=== PATIENT | male | born 1960 | race Caucasian/White ===

== ENCOUNTER → 2016-08-06 | Outpatient (REF) | payer OTHER ==
[~2016-08-06] MED LIST: ALB2.5NEB INH; LASI20TA PO; MICR10CA PO; NAPR500T2 PO; PULM90IN IN; TYLE325T5 PO; ULTR50TA PO; XARE15TA PO
== END ==
LOC: M LAB REF 12:48
PROVIDERS: ATTEND Internal Medicine
DX: L03.115 Cellulitis of right lower limb (principal)

== ENCOUNTER 2016-10-18 16:49 | Emergency (ER) | payer OTHER ==
[~2016-10-18] VITALS: Ht 180.3 cm; Wt 106.6 kg
[2016-10-18] MEDS ORDERED: BUDE180INH (17:10)
[2016-10-18] MEDS ORDERED: TORS20TA2 PO (17:10)
[2016-10-18] MEDS ORDERED: METO25TA (17:10)
[2016-10-18] MEDS ORDERED: KLOR1CAP2 (17:10)
[2016-10-18] MEDS ORDERED: MELO15TA4 (17:10)
[2016-10-18] MEDS ORDERED: LIDO2.5C15 (17:10)
[2016-10-18] MEDS ORDERED: PROA1AER (17:10)
[2016-10-18] MEDS ORDERED: TYLE325T5 PO (20:36)
[2016-10-18] MEDS ORDERED: ACETAMINOPHEN TAB 650MG DOSE (2X325MG) PO ONE (20:45)
[2016-10-18 20:47] VITALS: BP 135/84
--- NOTE | 2016-10-19 09:36 | REP ---
RIGHT HAND SERIES, COMPLETE: 10/18/2016. Clinical history: Trauma. States prior fracture to the 5th digit. Pain 4th and 5th digits today. Comparison: 11/23/2013. Findings: The four views show soft tissue swelling over the dorsal aspect of the hand and a distal metaphyseal fracture of the 5th metatarsal which extends in a reversal Y shape for a single communication to the articular surface for a three-part fracture. No significant displacement but some dorsal apex angulation of the fracture on the lateral view. No other finding. Impression: 1. Minimally comminuted but not displaced fracture of the distal metaphysis into the articular aspect of the 5th metatarsal. There is some dorsal apex angulation, however. No other fracture or focal bone lesion. Signed by David Conde MD 10/19/2016 05:09 P
== END 2016-10-18 20:56 | disposition home or self-care (01) ==
LOC: M ED 18:05
DX: S62.608A Fracture of unspecified phalanx of other finger, initial encounter for closed fracture (principal); W23.1XXA Caught, crushed, jammed, or pinched between stationary objects, initial encounter; Y92.89 Other specified places as the place of occurrence of the external cause; Y93.89 Activity, other specified; Y99.0 Civilian activity done for income or pay

== ENCOUNTER → 2017-10-21 | Outpatient (REF) | payer OTHER ==
[2017-10-21 13:00] LABS: C REACTIVE PROTEIN QUANTITATIV < 0.30 MG/DL (0.00-0.30)
== END ==
LOC: M LAB REF 12:30
DX: L03.115 Cellulitis of right lower limb (principal)

== ENCOUNTER 2018-09-01 21:37 | Emergency (ER) | payer OTHER, BC ==
[~2018-09-01] VITALS: Ht 180.3 cm; Wt 102.0 kg
[~2018-09-01 21:37] MED LIST changes: +BUDE180INH; +KLOR1CAP2; +LIDO2.5C15; +MELO15TA28; +METO25TA; +PROAAER10; +TORS20TA2 PO
[2018-09-01] MEDS ORDERED: XARE20TA PO (21:44)
[2018-09-01 23:30] VITALS: BP 127/81
--- NOTE | 2018-09-02 11:58 | REP ---
Clinical: Trauma/injury. Technique: AP, lateral, bilateral oblique views of the left fifth digit. Findings: Generalized age-related changes are noted. No obvious acute fracture or dislocation. No subcutaneous emphysema or radiodense foreign body. Impression: No obvious acute fracture or dislocation. Electronically Signed by Feng Mata MD 09/02/2018 11:50 A
--- NOTE | 2018-09-02 12:00 | REP ---
Clinical: Trauma/injury . Technique: AP, lateral, bilateral oblique views of the left elbow. Findings: Age-related changes are appreciated. Lateral view best demonstrates diffuse swelling and suggestions for subtle elevation to the anterior fat pad. Subtle nondisplaced fracture at the very tip of the coronoid process cannot be excluded. No further acute fracture dislocation identified. Impression: Significant swelling and possible effusion. Subtle injury involving the proximal ulna/coronoid process cannot be excluded. Electronically Signed by Feng Mata MD 09/02/2018 11:52 A
--- NOTE | 2018-09-05 20:32 | ED PDOC ---
Post-Departure Follow-Up dr jacobo faxed formal report of left elbow film for fu Marcin Elise MD Sep 05, 2018 20:32
== END 2018-09-01 23:32 | disposition home or self-care (01) ==
LOC: M ED 21:37
DX: S50.02XA Contusion of left elbow, initial encounter (principal); S60.052A Contusion of left little finger without damage to nail, initial encounter; X58.XXXA Exposure to other specified factors, initial encounter; Y92.149 Unspecified place in prison as the place of occurrence of the external cause; Y93.9 Activity, unspecified; Y99.0 Civilian activity done for income or pay; J45.909 Unspecified asthma, uncomplicated; M54.5 Low back pain; Z86.711 Personal history of pulmonary embolism; Z79.899 Other long term (current) drug therapy; Z91.030 Bee allergy status; J30.2 Other seasonal allergic rhinitis; J30.81 Allergic rhinitis due to animal (cat) (dog) hair and dander; Z88.0 Allergy status to penicillin

== ENCOUNTER → 2018-10-31 | Outpatient (CLI) | payer BC, OTHER ==
[~2018-10-31] MED LIST changes: +KLOR10TA76 PO; +XARE20TA PO
[2018-10-31 09:52] LABS: HEMATOCRIT 41.3 % (42.0-52.0); HEMOGLOBIN 13.8 g/dl (13.5-17.5); MEAN CORPUSCULAR HEMOGLOBIN 29.1 pg (27.0-33.0); MEAN CORPUSCULAR HGB CONC 33.4 g/dl (32.0-36.5); MEAN CORPUSCULAR VOLUME 86.9 fl (80.0-96.0); PLATELET COUNT, AUTOMATED 351 10^3/uL (150-450); RED BLOOD COUNT 4.75 10^6/uL (4.30-6.10); WHITE BLOOD COUNT 7.7 10^3/uL (4.0-10.0)
--- NOTE | 2018-10-31 10:06 | REP ---
Chest x-ray: Two views. History: Left knee arthritis. Comparison study: October 06, 2013. Findings: The lungs are symmetrically aerated and clear. Pleural angles are sharp. Heart size is normal. Pulmonary vasculature is not increased. There are minimal degenerative changes in the thoracic spine. Impression: No active disease. Electronically Signed by Jose Mccord MD 10/31/2018 09:57 A
[2018-10-31 10:08] LABS: INR 1.11; PROTHROMBIN TIME 14.5 SECONDS (12.1-14.4)
[2018-10-31 10:20] LABS: ALBUMIN 4.2 GM/DL (3.2-5.2); ALT/SGPT 20 U/L (12-78); BILIRUBIN,TOTAL 0.7 MG/DL (0.2-1.0); BLOOD UREA NITROGEN 18 MG/DL (7-18); CALCIUM LEVEL 8.5 MG/DL (8.5-10.1); CARBON DIOXIDE LEVEL 34 MEQ/L (21-32); CHLORIDE LEVEL 103 MEQ/L (98-107); CREATININE FOR GFR 1.27 MG/DL (0.70-1.30); GLOMERULAR FILTRATION RATE > 60.0 (>56); GLUCOSE, FASTING 114 MG/DL (70-100); POTASSIUM SERUM 3.6 MEQ/L (3.5-5.1); SODIUM LEVEL 143 MEQ/L (136-145); TOTAL PROTEIN 7.4 GM/DL (6.4-8.2)
[2018-10-31 16:03] LABS: ERYTHROCYTE SEDIMENTATION RATE 9 mm/hr (0-20)
--- NOTE | 2018-11-01 00:34 | ECGEPIP ---
Stationary ECG Study [facility] Test Date: 2018-10-31 Pat Name: GIA BALTAZAR Department: Room: - Gender: M [employer]: : 1960 Requested By: Marisabel Barboza Order Number: [id number] Reading MD: Christopher Benítez Measurements Intervals Equality Rate: 50 P: 55 FL: 183 QRS: 20 QRSD: 93 T: 3 QT: 431 QTc: 396 Interpretive Statements SINUS BRADYCARDIA Electronically Signed On 11-01-2018 0:34:19 EDT by Christopher Benítez
== END ==
LOC: M LAB 08:44
PROVIDERS: ATTEND Orthopaedic Surgery
DX: M17.12 Unilateral primary osteoarthritis, left knee (principal)

== ENCOUNTER 2018-11-16 07:00 | Inpatient (IN) | payer OTHER, BC ==
--- NOTE | 2018-11-15 08:54 | HPE ---
DATE OF ADMISSION: 11/16/2018 ATTENDING PHYSICIAN: Dr. Jabari Hodges CHIEF COMPLAINT: Left knee pain and stiffness. HISTORY: This is a 58-year-old male patient with progressively worsening left knee pain and stiffness who has failed to improve with conservative management. He has elected for surgery for his continued symptoms. He has consented for a left total knee arthroplasty by Dr. Hodges ALLERGIES: - PENICILLIN - CAT DANDER - POLLEN - BEE STINGS CURRENT MEDICATIONS: - Xarelto 20 mg one by mouth daily - torsemide 20 mg 2 tablets twice a day - potassium - Pulmicort 0.25 mg 2 puffs once daily - Proventil 188 mcg 2 puffs as needed every 6 hours PAST MEDICAL HISTORY: History of multiple deep vein thromboses (DVTs), history of pulmonary embolism. PAST SURGICAL HISTORY: Right fibula 1999, diskectomy 1991, left heel spur 2006, hydrocele. FAMILY HISTORY: Noncontributory. SOCIAL HISTORY: The patient is a nonsmoker and does not report alcohol use. REVIEW OF SYSTEMS: The patient denies fever, chills, chest pain, shortness breath, nausea, vomiting, diarrhea, recent upper respiratory or urinary tract infection symptoms. He does report persistent pain in the left knee. PHYSICAL EXAMINATION: Height 5 feet 9-1/2 inches. Weight 237 pounds. Temperature 97.1, blood pressure 126/62, pulse 70, respirations 14. He is normocephalic, atraumatic, in no apparent distress. Alert and oriented with appropriate mood and affect. Neck is supple and nontender with no lymphadenopathy or jugular venous distention (JVD). S1 and S2 auscultated with no murmurs, rubs or gallops. Lungs clear to auscultation bilaterally with no wheezes, rales or rhonchi. Abdomen: Soft, nontender. The left knee overlying skin is intact, range of motion intact. The left lower extremity is well perfused. EKG: Noted for sinus bradycardia. CHEST X-RAY: With no active disease. LABORATORY DATA: White count 7.7, red blood count 4.75, hemoglobin 13.8, hematocrit 41.3, ESR 9, PT 14.5, INR 1.11, BUN 18, creatinine 1.27. PREOPERATIVE MEDICAL OPTIMIZATION: By Ree Freedman reviewed today. IMPRESSION: Left knee degenerative changes. PLAN: Consented for left total knee arthroplasty with Dr. Hodges.
[2018-11-16] VITALS (8 sets, daily range): BP systolic 113–147; BP diastolic 62–75; O2SAT 96
[~2018-11-16] VITALS: Ht 180.3 cm; Wt 104.3 kg
[~2018-11-16 07:00] MED LIST changes: +LIDOCAINE 1% MDV 20ML VIAL SQ PRN
[2018-11-16] MEDS ORDERED: ACETAMINOPHEN 500 MG TAB PO ONE (07:30)
[2018-11-16] MEDS ORDERED: LR 1,000 ML IV SCH ×3 (07:30→12:30)
[2018-11-16] MEDS ORDERED: LR 1,000 ML IV ONE (08:00)
[2018-11-16] MEDS ORDERED: VANCOMYCIN HCL 1,000 MG, VIAL MATE ADAPTER 1 EACH in D5W 250 ML IV ONE (08:00)
[2018-11-16] MEDS ORDERED: VANCOMYCIN 1000 MG/20 ML VIAL (J3370) As Ordered ONE (08:23)
[2018-11-16] MEDS ORDERED: LIDOCAINE 2% INJ 100 MG/5 ML SDV (FOR ANES.) As Ordered ONE (08:29)
[2018-11-16] MEDS ORDERED: MIDAZOLAM INJ 2 MG/2 ML VIAL (J2250) As Ordered ONE ×2 (08:30→08:40)
[2018-11-16] MEDS ORDERED: PROPOFOL 500 MG/50 ML VIAL As Ordered ONE (08:30)
[2018-11-16] MEDS ORDERED: fentaNYL 100 MCG/2 ML INJECTION (J3010) As Ordered ONE (08:40)
[2018-11-16] MEDS ORDERED: BUPIVACAINE/DEXTROSE 0.75% 2 ML AMP As Ordered ONE (08:42)
[2018-11-16] MEDS: fentaNYL 100 MCG/2 ML INJECTION (J3010) IV PRN ×2 (09:01→09:04)
[2018-11-16] MEDS: MIDAZOLAM INJ 2 MG/2 ML VIAL (J2250) IV PRN ×2 (09:01→09:04)
[2018-11-16] MEDS ORDERED: BUPIVACAINE HCL 0.25% 30 ML VIAL As Ordered ONE (09:40)
[2018-11-16] MEDS ORDERED: TRANEXAMIC ACID 100 MG/ML 10ML VIAL As Ordered ONE (09:40)
[2018-11-16] MEDS ORDERED: CLINDAMYCIN INJ 900MG/6ML VIAL As Ordered ONE (09:41)
[2018-11-16] MEDS ORDERED: BUPIVACAINE LIPOSOME/PF 1.3% 20ML VIAL (13.3MG/ML)(EXPAREL)(C9290 PER1MG) As Ordered ONE (09:41)
[2018-11-16] MEDS ORDERED: EPINEPHrine INJ 1 MG/ML 1ML AMP As Ordered ONE (09:41)
[2018-11-16] MEDS ORDERED: ROPIvacaine 0.5% 30 ML INJECTION (J2795 PER 1MG) ONE (09:57)
[2018-11-16] MEDS ORDERED: dexameTHASONE 10 MG/1 ML VIAL PRES.FREE (J1100) ONE (09:57)
[2018-11-16] MEDS ORDERED: LIDOCAINE 1% MDV 20ML VIAL ONE (09:57)
[2018-11-16] MEDS ORDERED: dexameTHASONE 4 MG/ML 1ML VIAL (J1100) As Ordered ONE (10:40)
[2018-11-16] MEDS ORDERED: PERCOCET 5MG/325MG TAB PO PRN (12:15)
[2018-11-16] MEDS ORDERED: ONDANSETRON 4MG/2ML VIAL (J2405) IV PRN (12:15)
[2018-11-16] MEDS ORDERED: fentaNYL 100 MCG/2 ML INJECTION (J3010) IV PRN (12:15)
[2018-11-16] MEDS ORDERED: FLEET ENEMA PR PRN (12:30)
[2018-11-16] MEDS ORDERED: HYDROMORPHONE HCL 0.5 MG/ 0.5 ML SYRINGE (J1170 PER 1) IV PRN (12:30)
--- NOTE | 2018-11-16 13:44 | REP ---
REASON: Postoperative evaluation. Patient is status post TKR. Portable AP and lateral views were obtained status post TKR. The femoral and acetabular components are well seated and well approximated. The alignment is near anatomical. There is expected postoperative soft tissue swelling. There is an anterior skin staple line in place. Electronically Signed by Israel Baker DO 11/16/2018 03:26 P
--- NOTE | 2018-11-16 16:12 | RO ---
DATE OF PROCEDURE: 11/16/2018 PREOPERATIVE DIAGNOSIS: Left knee osteoarthritis. POSTOPERATIVE DIAGNOSIS: Left knee osteoarthritis. PROCEDURE: Left total knee arthroplasty using a size 7 femoral component with a size 7 tibial tray and a 6 mm rotating platform polyethylene insert, and a 38 mm polyethylene patellar button. Prosthesis made by [employer]. It was an Attune knee. SURGEON: Marisabel Bentley MD GLAZIER [employer] FURNITURE: MEGHAN Cool ANESTHESIA: Spinal with left femoral nerve block. COMPLICATIONS: None. ESTIMATED BLOOD LOSS: 20 mL. SPECIMEN: Joint surface. DESCRIPTION OF PROCEDURE: Antibiotics were given intravenously preoperatively, then a successful left femoral nerve block and then spinal anesthetic was established. Then, a tourniquet placed on left upper thigh and not inflated. The left lower extremity was carefully prepped and draped in the usual sterile fashion, elevated and then appropriate time-out. Tourniquet was inflated. A longitudinal incision was made for direct medial parapatellar approach to the knee. Bovie cautery used to coagulate the crossing vessels. Medial parapatellar arthrotomy was performed. Subperiosteal dissection around the proximal, medial and lateral tibia plateau was performed. The patella was everted. The knee flexed. Anterior cruciate ligament (ACL) was debrided. A drill placed down the center of the femoral canal, followed by the intramedullary joanna and the distal femoral cutting jig set at a 9 mm resection level at 5 degree valgus for a left knee. Pinned into position. Distal femoral cut performed. The AP sizing jig was then utilized to establish that a size 7 was the appropriate size. 3 degrees external rotation were dialed in. The block was pinned. Pin holes were made and then the 4-in-1 block applied. Then, the anterior, posterior and chamfer cuts performed. We then exposed placed the 10 plate for the femoral notch onto the femur and then performed the notchplasty with a saw. We then exposed the proximal tibia, used the extramedullary alignment jig to estimate being parallel to the mechanical axis referencing off the medial tibial condyle at 4 mm resection level. The block was pinned into position distal femoral, and then secondary check with an extramedullary joanna confirmed that we appeared to be parallel to the mechanical axis. Proximal tibial osteotomy thus performed. We then placed the lamina haunted history tour guide laterally and performed a completion medial meniscectomy and debridement of the posterior medial osteophytes. We then placed the lamina haunted history tour guide medially and performed a completion lateral meniscectomy and debridement of the posterior lateral osteophytes. Spacer block was placed. It was bit snugged medially. Thus, I did go back and do a bit more of medial and posteromedial release, and then the 5 mm spacer block fit well. It was fairly snug both in extension and in flexion, but at first I thought it was reasonably acceptable. Thus, I exposed the proximal tibia and sized for a #7 tray. The osteophytes medially were removed. We then applied the reamer and broach and the trial was placed, followed by the trial femoral component. We brought the knee through a range of motion. Brought the knee out into the extension. Everted the patella. Performed a patellar osteotomy. Sized for a 38 button. The lug hole was drilled and the trial was placed and patellofemoral tracking was anatomic. However, I did feel that there was a bit of excess tightness both in flexion and in extension with the 5 mm insert. Thus, I elected at this point to take a bit more off the proximal tibia. I removed the trial components. Used the batwing to reapply the tibial jig and then moved it down 2 mm and performed a proximal tibial osteotomy again. I then re-applied the tibial tray with the broach and then the femoral component. The 6 mm insert fit very nicely and this time we had excellent stability to varus/valgus stress testing. He come out in full extension and there is no excessive tightness. At this point, I thought he had good stability both in flexion and in extension. Thus, lug holes for the femur were drilled. Trial components removed. I copiously pulsatile lavage irrigated out the knee joint and placed Exparel in the subperiosteal tissues around the distal femur of the proximal tibia as Ms. Fiona Saenz at this point then mixed the cement on the back table. She was also critical to the success of this difficult surgery by helping with appropriate soft manipulation, helped to flex and extend the knee as needed, helped with closing the wound, preparing the patient, amongst many other tasks to allow me to perform the operation smoothly, efficiently and safely. Once all the bony surfaces were thoroughly dried, we then cemented the tibial tray, removed excess cement and placed the polyethylene, then cemented the femoral component and removed excess cement. Brought the knee out in extension and then cemented the patellar button, held it with a clamp and excess cement was removed. Then, we held the knee in extension as we waited for the cement to harden, and then, as we waiting this we copiously pulsatile lavage irrigated out the knee joint once again, then instilled Exparel and then began closing the apex through the arthrotomy with two #1 PDS sutures, then one medial parapatellar stitch and then we used a running double armed #1 Stratafix to close the capsule. Then, the tourniquet was released. We then irrigated between layers. Closed the deep subdermal tissues with interrupted #2-0 PDS suture. The skin was closed with linda and an Optifoam and dry sterile bulky dressing. He was then transferred to the recovery room in stable condition. There were no intraoperative complications.
[2018-11-16] MEDS: HYDROMORPHONE HCL 0.5 MG/ 0.5 ML SYRINGE (J1170 PER 1) IV PRN (19:53)
[2018-11-16] MEDS: ACETAMINOPHEN TAB 650MG DOSE (2X325MG) PO PRN (21:53)
[2018-11-16] MEDS: VANCOMYCIN HCL 1,000 MG, VIAL MATE ADAPTER 1 EACH in D5W 250 ML IV SCH (23:32)
[2018-11-17] MEDS: HYDROMORPHONE HCL 0.5 MG/ 0.5 ML SYRINGE (J1170 PER 1) IV PRN (00:54)
[2018-11-17 02:00] VITALS: BP 148/70
[2018-11-17] MEDS: ACETAMINOPHEN TAB 650MG DOSE (2X325MG) PO PRN (02:46)
[2018-11-17 06:00] VITALS: BP 133/68
[2018-11-17] MEDS ORDERED: PERCOCET 5MG/325MG TAB PO PRN (06:00)
[2018-11-17] MEDS ORDERED: ONDANSETRON 4 MG TAB (S0181) PO PRN (06:00)
[2018-11-17] MEDS: PERCOCET 5MG/325MG TAB PO PRN ×3 (06:14→14:45)
[2018-11-17 06:33] LABS: HEMATOCRIT 36.5 % (42.0-52.0); MEAN CORPUSCULAR HEMOGLOBIN 29.1 pg (27.0-33.0); MEAN CORPUSCULAR HGB CONC 32.9 g/dl (32.0-36.5); MEAN CORPUSCULAR VOLUME 88.6 fl (80.0-96.0); PLATELET COUNT, AUTOMATED 267 10^3/uL (150-450); RED BLOOD COUNT 4.12 10^6/uL (4.30-6.10); WHITE BLOOD COUNT 19.5 10^3/uL (4.0-10.0)
[2018-11-17 06:52] LABS: BLOOD UREA NITROGEN 15 MG/DL (7-18); CALCIUM LEVEL 8.6 MG/DL (8.5-10.1); CARBON DIOXIDE LEVEL 29 MEQ/L (21-32); CHLORIDE LEVEL 105 MEQ/L (98-107); CREATININE FOR GFR 1.08 MG/DL (0.70-1.30); GLOMERULAR FILTRATION RATE > 60.0 (>56); GLUCOSE, FASTING 137 MG/DL (70-100); POTASSIUM SERUM 3.7 MEQ/L (3.5-5.1); SODIUM LEVEL 140 MEQ/L (136-145)
[2018-11-17] MEDS ORDERED: PERC5TAB12 PO (07:59)
[2018-11-17 08:00] VITALS: BP 118/64
[2018-11-17] MEDS ORDERED: MIRALAX *UNIT DOSE* 17GM PACKET PO SCH (09:00)
[2018-11-17] MEDS ORDERED: MOM 30ML SUSPENSION UDC PO SCH (09:00)
[2018-11-17] MEDS: VANCOMYCIN HCL 1,000 MG, VIAL MATE ADAPTER 1 EACH in D5W 250 ML IV SCH (11:08)
[2018-11-17] MEDS ORDERED: RIVAROXABAN 10 MG TAB (XARELTO) PO SCH (18:00)
== END 2018-11-17 15:00 | disposition home or self-care (01) | DRG 302 ==
LOC: M OR 07:00 → M MS5PR 14:40
PROVIDERS: ADMIT Orthopaedic Surgery; ATTEND Orthopaedic Surgery
PROC: 0SRD0J9 Replacement of Left Knee Joint with Synthetic Substitute, Cemented, Open Approach (ICD-10-PCS; principal; 2018-11-16 10:00)
DX: M17.12 Unilateral primary osteoarthritis, left knee (principal); J30.1 Allergic rhinitis due to pollen; J30.81 Allergic rhinitis due to animal (cat) (dog) hair and dander; Z86.711 Personal history of pulmonary embolism; Z86.718 Personal history of other venous thrombosis and embolism; Z88.0 Allergy status to penicillin; Z91.030 Bee allergy status; Z79.01 Long term (current) use of anticoagulants; Z79.899 Other long term (current) drug therapy; Z87.891 Personal history of nicotine dependence

== ENCOUNTER 2018-12-03 19:31 | Emergency (ER) | payer OTHER, BC ==
[~2018-12-03] VITALS: Ht 180.3 cm; Wt 106.8 kg
[~2018-12-03 19:31] MED LIST changes: -LIDOCAINE 1% MDV 20ML VIAL SQ PRN; +PERC5TAB12 PO
[2018-12-03 20:53] LABS: BASO # 0.1 10^3/uL (0.0-0.2); BASO % 0.8 % (0.0-1.0); EOS # 0.2 10^3/uL (0.0-0.50); EOS % 2.7 % (0.0-3.0); HEMATOCRIT 36.7 % (42.0-52.0); HEMOGLOBIN 12.2 g/dl (13.5-17.5); LYMPH # 1.7 10^3/uL (1.5-4.5); LYMPH % 22.1 % (24.0-44.0); MEAN CORPUSCULAR HEMOGLOBIN 29.3 pg (27.0-33.0); MEAN CORPUSCULAR HGB CONC 33.2 g/dl (32.0-36.5); MONO # 0.6 10^3/uL (0.0-0.8); MONO % 7.8 % (0.0-5.0); NEUTROPHILS # 5.2 10^3/uL (1.8-7.7); PLATELET COUNT, AUTOMATED 390 10^3/uL (150-450); RED BLOOD COUNT 4.17 10^6/uL (4.30-6.10); WHITE BLOOD COUNT 7.8 10^3/uL (4.0-10.0)
[2018-12-03 21:16] LABS: ERYTHROCYTE SEDIMENTATION RATE 25 mm/hr (0-20)
[2018-12-03 21:17] LABS: BLOOD UREA NITROGEN 22 MG/DL (7-18); C REACTIVE PROTEIN QUANTITATIV 0.42 MG/DL (0.00-0.30); CALCIUM LEVEL 8.9 MG/DL (8.5-10.1); CARBON DIOXIDE LEVEL 33 MEQ/L (21-32); CHLORIDE LEVEL 103 MEQ/L (98-107); CREATININE FOR GFR 1.19 MG/DL (0.70-1.30); GLOMERULAR FILTRATION RATE > 60.0 (>56); GLUCOSE, FASTING 100 MG/DL (70-100); POTASSIUM SERUM 3.7 MEQ/L (3.5-5.1); SODIUM LEVEL 143 MEQ/L (136-145)
[2018-12-03 22:28] VITALS: BP 157/92
--- NOTE | 2018-12-04 08:30 | REP ---
Clinical: Postoperative swelling. Technique: AP, lateral, bilateral oblique views of the left knee. Findings: The patient is status post knee replacement with satisfactory appearance and position to the tibial and femoral components. Diffuse soft tissue swelling and effusion noted. Impression: Diffuse soft tissue swelling and effusion. Electronically Signed by Feng Mata MD 12/04/2018 08:21 A
== END 2018-12-03 22:31 | disposition home or self-care (01) ==
LOC: M ED 19:31
DX: M25.462 Effusion, left knee (principal); Z98.890 Other specified postprocedural states; Z96.662 Presence of left artificial ankle joint; Z86.718 Personal history of other venous thrombosis and embolism; Z86.711 Personal history of pulmonary embolism; J45.909 Unspecified asthma, uncomplicated; R60.9 Edema, unspecified; Z88.0 Allergy status to penicillin; Z91.030 Bee allergy status; Z79.899 Other long term (current) drug therapy; Z79.01 Long term (current) use of anticoagulants; Z79.51 Long term (current) use of inhaled steroids

== ENCOUNTER → 2019-06-01 | Outpatient (CLI) | payer BC, OTHER ==
--- NOTE | 2019-06-01 10:55 | REP ---
RENAL ULTRASOUND: Real-time sonographic evaluation of the kidneys performed and demonstrates both kidneys to be normal in size and echotexture, right kidney measuring 12.3 x 5.8 x 6.0 cm and left kidney 1.4 x 5.0 x 5.9 cm. There is no hydronephrosis, renal mass or nephrolithiasis. There are ureteral jets in the urinary bladder with Doppler color evaluation bilaterally. IMPRESSION: Negative renal ultrasound. Electronically Signed by Christiano Arana MD 06/01/2019 11:46 A
--- NOTE | 2019-06-01 11:01 | REP ---
RIGHT LOWER EXTREMITY DUPLEX DOPPLER ARTERIAL ULTRASOUND: Real-time ultrasound evaluation and duplex Doppler interrogation of right lower extremity arterial system is performed. BIANKA is 1.1. Minimal scattered plaque is seen diffusely. There is no compelling duplex Doppler sonographic evidence of hemodynamically significant stenosis of the right lower extremity arterial system. There are normal flow velocities and triphasic waveforms diffusely. PEAK SYSTOLIC VELOCITY RIGHT Common femoral artery 92.0 cm/s Profunda 61.7 SFA 96.0 Popliteal 88.9 Proximal anterior tibial artery 61.6 Tibial peroneal trunk 78.9 Proximal posterior tibial artery 47.0 Distal posterior tibial artery 116.0 Distal anterior tibial artery 92.8 IMPRESSION: Minimal scattered plaquing right lower extremity arterial system without evidence of hemodynamically significant stenosis. Electronically Signed by Christiano Arana MD 06/01/2019 11:47 A
== END ==
LOC: M RAD 09:07
PROVIDERS: ATTEND Internal Medicine
DX: R22.41 Localized swelling, mass and lump, right lower limb (principal)

== ENCOUNTER → 2019-06-06 | Outpatient (REF) | payer OTHER | LOC: M LAB REF 11:28 | PROVIDERS: ATTEND Internal Medicine | DX: Z86.711 Personal history of pulmonary embolism (principal); R22.41 Localized swelling, mass and lump, right lower limb ==

== ENCOUNTER → 2019-10-26 | Outpatient (CLI) | payer BC, OTHER ==
--- NOTE | 2019-10-27 05:06 | REP ---
Clinical: History of prior deep venous thrombosis. Technique: Real time carr scale and color Doppler evaluation of the bilateral lower extremities using linear high frequency transducer. Reflux evaluation performed. Findings: Ultrasound examination of the bilateral lower extremities demonstrates no evidence for deep venous thrombosis. Bilateral Maher's cysts measure 3.3 x 0.8 x 2.0 cm in the right popliteal fossa and 4.1 x 1.4 x 3.0 cm in the left popliteal fossa. Right lower extremity demonstrates minimal reflux in the common femoral vein on standing and mid superficial femoral vein primarily in the Trendelenburg position with bed tipped. Left lower extremity demonstrates minimal reflux in the common femoral vein on standing and superficial femoral vein/popliteal vein in the Trendelenburg position with bed tipped. Impression: 1. No evidence for deep venous thrombosis. 2. Minimal reflux through the bilateral deep venous system primarily in the Trendelenburg position. 3. Bilateral Maher's cysts. Electronically Signed by Feng Mata MD 10/27/2019 04:58 A
== END ==
LOC: M RAD 08:46
PROVIDERS: ATTEND Physician Assistant
DX: Z86.718 Personal history of other venous thrombosis and embolism (principal)

== ENCOUNTER 2020-09-19 00:04 | Emergency (ER) | payer BC, OTHER ==
[~2020-09-19] VITALS: Ht 180.3 cm; Wt 113.6 kg
[2020-09-19] MEDS ORDERED: BREO1INH3 PO (00:14)
[2020-09-19] MEDS ORDERED: SPIR-10 PO (00:14)
--- NOTE | 2020-09-19 01:12 | REPVR ---
PROCEDURE INFORMATION: Exam: XR Right Knee Exam date and time: 09/19/2020 12:22 AM Age: 60 years old Clinical indication: Other: Trauma TECHNIQUE: Imaging protocol: XR Right knee. Views: 4 or more views. [place] view of the patella was included. COMPARISON: CR Knee, Ap, Lat 11/16/2018 12:17 PM FINDINGS: Bones/joints: No fracture. No dislocation. Joint spaces are preserved. Two well corticated osseous density in the intercondylar notch measuring up to 8 mm. Soft tissues: Normal. IMPRESSION: 1. No acute fracture. 2. Two well corticated osseous density in the intercondylar notch. Loose body or calcific tendinitis. Electronically signed by: Rafal Brown On 09/19/2020 01:13:22 AM
[2020-09-19] MEDS ORDERED: NORCO, ANEXSIA 5/325MG TABLET (HYDROcodone/ACETAMINOPHEN) PO ONE (01:15)
[2020-09-19 01:59] VITALS: BP 129/71
--- NOTE | 2020-09-20 08:05 | ED PDOC ---
Post-Departure Follow-Up right knee xray faxed formal report to luis jacobo and kelly for fu Marcin Elise MD Sep 20, 2020 08:05
== END 2020-09-19 02:01 | disposition home or self-care (01) ==
LOC: M ED 00:04
DX: M23.91 Unspecified internal derangement of right knee (principal); I10 Essential (primary) hypertension; J45.909 Unspecified asthma, uncomplicated; Z86.711 Personal history of pulmonary embolism; Z86.718 Personal history of other venous thrombosis and embolism; Z88.0 Allergy status to penicillin; Z79.01 Long term (current) use of anticoagulants

== ENCOUNTER → 2020-10-09 | Outpatient (CLI) | payer OTHER, BC ==
[~2020-10-09] MED LIST changes: +BREO1INH3 PO; +SPIR-10 PO
--- NOTE | 2020-10-09 15:13 | REP ---
INDICATION: UNSP INTERNAL DERANGEMENT OF RT KNEE. COMPARISON: Radiographs 09/19/2020. TECHNIQUE: Multiple sequences obtained in the axial, coronal and sagittal planes. FINDINGS: Menisci: There is a complex tear of the posterior horn of the medial meniscus. Cruciate ligaments: There is mild increased signal on T2 weighted images in the anterior cruciate ligament suggesting a sprain or partial tear. Collateral ligaments: Mild edema surrounds the medial collateral ligament suggesting a grade 1 sprain. Extensor mechanism/patellar retinacula: Intact. Cartilage: There is moderately severe chondromalacia of the medial femoral condyle at the weight-bearing surface. There is moderate chondromalacia of the medial tibial plateau. Bone marrow: There is moderate marrow edema in the medial femoral condyle. Joint fluid: There is a moderate joint effusion. Popliteal region: A Maher's cyst is noted having a length of approximately 4 cm, and a maximum thickness of about 1.2 cm. IMPRESSION: Complex tear posterior horn medial meniscus. Findings suggesting a sprain or partial tear of the anterior cruciate ligament. Findings compatible with grade 1 sprain of the medial collateral ligament. Moderately severe chondromalacia of the weight-bearing surface of the medial femoral condyle with underlying marrow edema. Moderate joint effusion. Maher's cyst. <Electronically signed by Christiano Arana > 10/09/20 [id number]
== END ==
LOC: M PLARAD 10:19
PROVIDERS: ATTEND Family Medicine
DX: M23.221 Derangement of posterior horn of medial meniscus due to old tear or injury, right knee (principal); M94.261 Chondromalacia, right knee; M25.461 Effusion, right knee; M71.21 Synovial cyst of popliteal space [Baker], right knee

== ENCOUNTER → 2020-11-14 | Outpatient (CLI) | payer OTHER, BC ==
[~2020-11-14] MED LIST changes: +VALS40TA9 PO
== END ==
LOC: M LABSMTC 10:14
PROVIDERS: ATTEND Anesthesiology
DX: Z20.828 Contact with and (suspected) exposure to other viral communicable diseases (principal); Z11.59 Encounter for screening for other viral diseases

== ENCOUNTER 2020-11-19 08:06 | Day surgery (SDC) | payer OTHER ==
[~2020-11-19] VITALS: Ht 180.3 cm; Wt 117.5 kg
[~2020-11-19 08:06] MED LIST changes: +LIDO1CRE42; -LIDO2.5C15; +LR 1,000 ML IV ONE
[2020-11-19] MEDS ORDERED: GABAPENTIN 300 MG CAP PO ONE (08:45)
[2020-11-19] MEDS ORDERED: ACETAMINOPHEN 500 MG TAB PO ONE (08:45)
[2020-11-19] MEDS ORDERED: ONDANSETRON 4MG/2ML VIAL IV ONE (08:45)
[2020-11-19] MEDS ORDERED: BUPIVACAINE/EPIN 0.5% 30 ML VIAL As Ordered ONE (11:31)
[2020-11-19] MEDS ORDERED: EPINEPHrine 1MG/ML INJ 30ML MD-VIAL As Ordered ONE (11:31)
[2020-11-19] MEDS ORDERED: LIDOCAINE 2% 100MG/5ML SDV (FOR ANES.) As Ordered ONE (12:02)
[2020-11-19] MEDS ORDERED: ONDANSETRON 4MG/2ML VIAL As Ordered ONE (12:02)
[2020-11-19] MEDS ORDERED: METOCLOPRAMIDE INJ 10MG/2ML VIAL (J2765 PER 1) As Ordered ONE (12:02)
[2020-11-19] MEDS ORDERED: fentaNYL 100 MCG/2 ML INJECTION (J3010) As Ordered ONE ×2 (12:02→13:19)
[2020-11-19] MEDS ORDERED: MIDAZOLAM INJ 2MG/2ML VIAL (J2250 PER 1MG) As Ordered ONE (12:02)
[2020-11-19] MEDS ORDERED: propofoL 200 MG/20 ML VIAL As Ordered ONE (12:02)
[2020-11-19] MEDS ORDERED: dexameTHASONE 4 MG/ML 1ML VIAL (J1100 PER 1MG) As Ordered ONE (12:02)
[2020-11-19] MEDS ORDERED: ePHEDrine SULFATE 25 MG/5 ML(5MG/ML) SYRINGE As Ordered ONE (12:14)
[2020-11-19] MEDS ORDERED: ONDANSETRON 4MG/2ML VIAL IV PRN (13:25)
[2020-11-19] MEDS ORDERED: LR 1,000 ML IV SCH ×2 (13:25→14:25)
[2020-11-19] MEDS ORDERED: HYDROMORPHONE HCL 0.5 MG/ 0.5 ML SYRINGE (J1170 PER 1) IV PRN (13:25)
[2020-11-19] MEDS: fentaNYL 100 MCG/2 ML INJECTION (J3010) IV PRN ×4 (13:27→13:43)
[2020-11-19] MEDS: oxyCODONE 5MG TAB PO PRN ×2 (13:31→14:09)
[2020-11-19 15:50] VITALS: BP 127/60
--- NOTE | 2020-11-19 16:07 | ROOPDOC ---
[facility] Report Of Operation Report of Operation PREPROCEDURE DIAGNOSES: Right knee medial meniscal tear, possible chondral injury to medial femoral condyle POSTPROCEDURE DIAGNOSES: Right knee medial meniscal tear, posterior horn; diffuse grade 3-4 changes to medial femoral condyle; minimal ACL deficiency; plica, suprapatellar pouch; loose body intercondylar notch PROCEDURE: Right knee arthroscopy with tricompartmental evaluation Removal of loose body 1 cm in diameter Subtotal meniscectomy, right medial meniscus Plica ectomy Chondroplasty patella and trochlea Chondroplasty medial femoral condyle Plica ectomy, suprapatellar pouch SURGEON: Christopher Mejia MD CATERER HELPER: Angeles Crowley LPN ANESTHESIA: Gen. ESTIMATED BLOOD LOSS: Less than 15 mL . COMPLICATIONS: No known complications. REMARKS: Tourniquet inflated for 37 minutes. PROCEDURE NOTE: The patient was seen in the preoperative area, Consent was reviewed or obtained and the appropriate extremity was marked. DESCRIPTION OF PROCEDURE: The patient was brought to the operating room and after a surgical pause, the anesthetic was induced. The patient was appropriately positioned supine on the operating room table. A tourniquet was applied to the appropriate thigh with appropriate padding. Side bolster was also applied to help with manipulation of the extremity during the procedure. The extremity was prepped with chlorhexidine. The patient was draped in the normal sterile fashion. After a surgical safety checklist was performed, and a timeout was performed, the tourniquet was inflated and the incision over the lateral portal site was carried out. The trocar was introduced using the blunt tip. The scope was introduced and the fluid was allowed to run until the joint was insufflated with the scope in the patellofemoral joint. A diagnostic arthroscopy was then carried out. A medial portal was established using needle localization technique. A superior lateral portal was also established using needle localization. Patellofemoral joint: Plica debrided with shaver Patella: Grade 2 changes debrided with shaver Medial gutter: Clear Lateral gutter: Clear Medial meniscus: Posterior horn body junction. Complete radial tear, debrided with punches and shaver and bone cutter shaver to stable border Medial femoral condyle: Diffuse grade 3-4 changes to medial femoral condyle debrided with shaver Medial tibial condyle: Grade 2 changes ACL: Stranding, but overall stable. Possible grade 1 Lateral meniscus: Stable Lateral femoral condyle: Grade 0 Lateral tibial plateau: Grade 1 Once the arthroscopic procedure was completed, the fluid was removed from the joint and the wounds were closed with 3. 0 Monocryl suture. Local anesthetic of 0.5% Marcaine with epi was instilled in the soft tissues and into the joint region. Mastisol was applied to the skin followed by Steri-Strips and Telfa and Tegaderm dressing. This was reinforced with an abdominal pad and a large Justin wrap was placed up to the level of the thigh from the foot and ankle. The patient tolerated the procedure well with no known complications. The patient will be seen for follow-up within 2 weeks, as scheduled. Postoperative instruction booklet was provided. The patient will have prescriptions for oxycodone for pain, he will restart his several toe tomorrow for DVT prophylaxis, and senna for constipation. Tylenol can be used as directed by bottle instructions. Prescriptions were sent to [facility], as requested. Thank you for referring this patient to my care, CHRISTOPHER MEJIA MD November 19, 2020 16:07
== END 2020-11-19 16:28 | disposition home or self-care (01) ==
LOC: M SDC 08:06
PROVIDERS: ATTEND Orthopaedic Surgery Adult Reconstructive Orthopaedic Surgery
DX: S83.241A Other tear of medial meniscus, current injury, right knee, initial encounter (principal); M23.611 Other spontaneous disruption of anterior cruciate ligament of right knee; M22.41 Chondromalacia patellae, right knee; M67.51 Plica syndrome, right knee; M23.41 Loose body in knee, right knee; X58.XXXA Exposure to other specified factors, initial encounter; Y92.89 Other specified places as the place of occurrence of the external cause; J45.20 Mild intermittent asthma, uncomplicated; I11.9 Hypertensive heart disease without heart failure; M19.90 Unspecified osteoarthritis, unspecified site; Z86.718 Personal history of other venous thrombosis and embolism; Z86.711 Personal history of pulmonary embolism; Z79.899 Other long term (current) drug therapy; Z79.51 Long term (current) use of inhaled steroids; Z79.01 Long term (current) use of anticoagulants; Z88.0 Allergy status to penicillin; Z91.030 Bee allergy status
CPT/HCPCS: 29875; 29881; J1100; J2250; J2405; J2765; J3010

== ENCOUNTER → 2021-11-27 | Outpatient (CLI) | payer BC, OTHER ==
[~2021-11-27] MED LIST changes: -KLOR10TA76 PO; -LR 1,000 ML IV ONE; +POTA-136 PO
== END ==
LOC: M PLAIMG 08:17
PROVIDERS: ATTEND Chiropractor
DX: M54.40 Lumbago with sciatica, unspecified side (principal)

== ENCOUNTER → 2021-12-04 | Outpatient (REF) | payer BC, OTHER ==
[2021-12-06 00:12] LABS: ANA (HEP2) Negative (.); CYCLIC CITRULLINATED PEPTIDE > 250 units (0-19)
== END ==
LOC: M LAB REF 12:21
PROVIDERS: ATTEND Internal Medicine
DX: M25.50 Pain in unspecified joint (principal); R74.8 Abnormal levels of other serum enzymes

== ENCOUNTER → 2022-02-10 | Outpatient (REF) | payer OTHER ==
[2022-02-10 17:31] LABS: C REACTIVE PROTEIN QUANTITATIV 0.38 MG/DL (0.00-0.30); URIC ACID 4.8 MG/DL (3.5-7.2)
== END ==
LOC: M LAB REF 16:16
PROVIDERS: ATTEND Internal Medicine
DX: M25.50 Pain in unspecified joint (principal)

== ENCOUNTER → 2022-07-16 | Outpatient (CLI) | payer OTHER, BC | LOC: M PLALAB 13:05 | PROVIDERS: ATTEND Physician Assistant | DX: N40.1 Benign prostatic hyperplasia with lower urinary tract symptoms (principal) ==

== ENCOUNTER → 2022-07-31 | Outpatient (CLI) | payer BC, OTHER | LOC: M PLAIMG 11:27 → M PLARAD 11:27 | PROVIDERS: ATTEND Internal Medicine | DX: M25.551 Pain in right hip (principal); M25.552 Pain in left hip; M05.79 Rheumatoid arthritis with rheumatoid factor of multiple sites without organ or systems involvement ==

== ENCOUNTER → 2022-07-31 | Outpatient (REF) | payer OTHER ==
[2022-07-31 13:01] LABS: BASO # 0.1 10^3/uL (0.0-0.2); EOS # 0.1 10^3/uL (0.0-0.5); EOS % 1.2 % (0.0-3.0); HEMATOCRIT 41.2 % (42.0-52.0); HEMOGLOBIN 13.2 g/dl (13.5-17.5); LYMPH # 1.1 10^3/uL (1.5-5.0); LYMPH % 18.1 % (24.0-44.0); MEAN CORPUSCULAR HEMOGLOBIN 28.3 pg (27.0-33.0); MEAN CORPUSCULAR VOLUME 88.4 fl (80.0-96.0); MONO # 0.5 10^3/uL (0.0-0.8); MONO % 8.1 % (2.0-8.0); NEUTROPHILS # 4.3 10^3/uL (1.5-8.5); NEUTROPHILS % 71.1 % (36.0-66.0); PLATELET COUNT, AUTOMATED 310 10^3/uL (150-450); RED BLOOD COUNT 4.66 10^6/uL (4.30-6.10); WHITE BLOOD COUNT 6.1 10^3/uL (4.0-10.0)
[2022-07-31 13:15] LABS: ERYTHROCYTE SEDIMENTATION RATE 15 mm/hr (0-20)
[2022-07-31 13:32] LABS: C REACTIVE PROTEIN QUANTITATIV < 0.40 MG/DL (<1.0); MAGNESIUM LEVEL 1.9 MG/DL (1.8-2.4)
[2022-07-31 13:33] LABS: TOTAL 25(OH) VITAMIN D 18.6 NG/ML (20.0-100.0)
[2022-07-31 13:34] LABS: ALKALINE PHOSPHATASE 47 U/L (46-116); ALT/SGPT 23 U/L (7.0-40); AST/SGOT 17 U/L (<34); BILIRUBIN,DIRECT 0.2 MG/DL (<0.4); BILIRUBIN,TOTAL 0.4 MG/DL (0.3-1.2); BLOOD UREA NITROGEN 16 MG/DL (9-23); CARBON DIOXIDE LEVEL 30 MMOL/L (20-31); CHLORIDE LEVEL 101 MMOL/L (98-107); CPK CREATINE PHOSPHOKINASE 151 U/L (46-171); GLOMERULAR FILTRATION RATE > 60.0 (>49); GLUCOSE, FASTING 101 MG/DL (74-106); HEPATITIS B SURFACE ANTIBODY NEGATIVE (POSITIVE); IMMUNOGLOBULIN G 1019 MG/DL (650-1600); IMMUNOGLOBULIN M 94.9 MG/DL (50-300); IRON (FE) 32 UG/DL (65-175); PHOSPHORUS LEVEL 3.9 MG/DL (2.4-5.1); POTASSIUM SERUM 3.5 MMOL/L (3.5-5.1); SODIUM LEVEL 141 MMOL/L (136-145); TOTAL PROTEIN 6.8 G/DL (5.7-8.2); VITAMIN B12 LEVEL 371 PG/ML (211-911)
[2022-07-31 13:45] LABS: HEPATITIS B SURFACE ANTIGEN NEGATIVE (NEGATIVE)
[2022-08-03 17:06] LABS: ANCA-ATYPICAL <1:20 titer (Neg:<1:20); CYTOPLASMIC NEUTROP AB ANCA-C <1:20 titer (Neg:<1:20); HEPATITIS B CORE ANTIBODY IGG Negative (Negative); PERINUCLEAR AB ANCA-P <1:20 titer (Neg:<1:20)
[2022-08-03 19:07] LABS: ALBUMIN 3.8 g/dL (2.9-4.4); ALPHA-1-GLOBULINS 0.2 g/dL (0.0-0.4); ALPHA-2-GLOBULINS 0.7 g/dL (0.4-1.0); BETA-1-GLOBULINS 1.1 g/dL (0.7-1.3); TOTAL PROTEIN ELECTROPHORESIS 6.8 g/dL (6.0-8.5)
== END ==
LOC: M SFHCRHEU 10:26
PROVIDERS: ATTEND Internal Medicine
DX: M79.10 Myalgia, unspecified site (principal); M05.79 Rheumatoid arthritis with rheumatoid factor of multiple sites without organ or systems involvement; Z11.59 Encounter for screening for other viral diseases

== ENCOUNTER → 2023-01-26 | Outpatient (REF) | payer OTHER ==
[~2023-01-26] MED LIST changes: -LIDO1CRE42; +LIDO30CR18
[2023-01-26 11:35] LABS: BASO # 0.1 10^3/uL (0.0-0.2); BASO % 1.3 % (0.0-1.0); EOS # 0.1 10^3/uL (0.0-0.5); EOS % 2.7 % (0.0-3.0); HEMOGLOBIN 13.1 g/dl (13.5-17.5); LYMPH # 0.9 10^3/uL (1.5-5.0); LYMPH % 25.1 % (24.0-44.0); MEAN CORPUSCULAR HEMOGLOBIN 30.5 pg (27.0-33.0); MEAN CORPUSCULAR HGB CONC 33.6 g/dl (32.0-36.5); MEAN CORPUSCULAR VOLUME 90.7 fl (80.0-96.0); MONO # 0.4 10^3/uL (0.0-0.8); MONO % 10.7 % (2.0-8.0); NEUTROPHILS # 2.2 10^3/uL (1.5-8.5); NEUTROPHILS % 59.7 % (36.0-66.0); PLATELET COUNT, AUTOMATED 233 10^3/uL (150-450); WHITE BLOOD COUNT 3.7 10^3/uL (4.0-10.0)
[2023-01-26 11:52] LABS: ERYTHROCYTE SEDIMENTATION RATE 6 mm/hr (0-20)
[2023-01-26 12:05] LABS: C REACTIVE PROTEIN QUANTITATIV < 0.40 MG/DL (<1.0)
[2023-01-26 12:06] LABS: ALBUMIN 3.6 G/DL (3.2-5.2); ALKALINE PHOSPHATASE 37 U/L (46-116); ALT/SGPT 38 U/L (7.0-40); AST/SGOT 29 U/L (<34); BILIRUBIN,DIRECT 0.3 MG/DL (<0.4); BILIRUBIN,TOTAL 0.9 MG/DL (0.3-1.2); BLOOD UREA NITROGEN 22 MG/DL (9-23); CALCIUM LEVEL 8.4 MG/DL (8.3-10.6); CARBON DIOXIDE LEVEL 29 MMOL/L (20-31); CHLORIDE LEVEL 105 MMOL/L (98-107); CREATININE FOR GFR 1.02 MG/DL (0.70-1.30); GLOMERULAR FILTRATION RATE > 60.0 (>49); GLUCOSE, FASTING 110 MG/DL (74-106); POTASSIUM SERUM 3.6 MMOL/L (3.5-5.1); SODIUM LEVEL 144 MMOL/L (136-145); TOTAL PROTEIN 6.3 G/DL (5.7-8.2)
== END ==
LOC: M SFHCRHEU 10:01
PROVIDERS: ATTEND Internal Medicine
DX: M05.79 Rheumatoid arthritis with rheumatoid factor of multiple sites without organ or systems involvement (principal)

== ENCOUNTER → 2023-02-05 | Outpatient (REF) | payer OTHER ==
[2023-02-05 14:00] LABS: APPEARANCE, URINE HAZY (CLEAR); BACTERIA, URINE AUTO NEGATIVE (NEGATIVE); BILIRUBIN, URINE AUTO NEGATIVE (NEGATIVE); BLOOD, URINE BLOOD NEGATIVE (NEGATIVE); COLOR, URINE YELLOW (YELLOW); GLUCOSE, URINE (UA) AUTO NEGATIVE (NEGATIVE); KETONE, URINE AUTO NEGATIVE (NEGATIVE); LEUKOCYTE ESTERASE, URINE AUTO NEGATIVE (NEGATIVE); MUCUS, URINE SMALL (NEGATIVE); NITRITE, URINE AUTO NEGATIVE (NEGATIVE); PROTEIN, URINE AUTO NEGATIVE (NEGATIVE); RBC, URINE AUTO 1 /HPF (0-3); SQUAMOUS EPITHELIAL CELL UR AU 0 /HPF (0-6); UROBILINOGEN, URINE AUTO 0.2 mg/dL (0.0-2.0); WBC, URINE AUTO 1 /HPF (0-3)
== END ==
LOC: M SMT 12:55
PROVIDERS: ATTEND Physician Assistant
DX: R35.1 Nocturia (principal)

== ENCOUNTER → 2023-02-23 | Outpatient (REF) | payer BC, OTHER ==
[2023-02-23 11:50] LABS: BASO # 0.1 10^3/uL (0.0-0.2); BASO % 1.1 % (0.0-1.0); EOS # 0.1 10^3/uL (0.0-0.5); EOS % 3.1 % (0.0-3.0); HEMATOCRIT 39.7 % (42.0-52.0); HEMOGLOBIN 13.3 g/dl (13.5-17.5); LYMPH # 1.2 10^3/uL (1.5-5.0); LYMPH % 26.7 % (24.0-44.0); MEAN CORPUSCULAR HEMOGLOBIN 30.6 pg (27.0-33.0); MEAN CORPUSCULAR HGB CONC 33.5 g/dl (32.0-36.5); MEAN CORPUSCULAR VOLUME 91.3 fl (80.0-96.0); MONO # 0.5 10^3/uL (0.0-0.8); MONO % 10.9 % (2.0-8.0); NEUTROPHILS # 2.6 10^3/uL (1.5-8.5); NEUTROPHILS % 57.8 % (36.0-66.0); PLATELET COUNT, AUTOMATED 267 10^3/uL (150-450); RED BLOOD COUNT 4.35 10^6/uL (4.30-6.10); WHITE BLOOD COUNT 4.5 10^3/uL (4.0-10.0)
[2023-02-23 12:01] LABS: ERYTHROCYTE SEDIMENTATION RATE 7 mm/hr (0-20)
[2023-02-23 12:16] LABS: C REACTIVE PROTEIN QUANTITATIV < 0.40 MG/DL (<1.0)
[2023-02-23 12:18] LABS: ALBUMIN 3.6 G/DL (3.2-5.2); ALKALINE PHOSPHATASE 38 U/L (46-116); ALT/SGPT 28 U/L (7.0-40); AST/SGOT 14 U/L (<34); BILIRUBIN,DIRECT 0.3 MG/DL (<0.4); BILIRUBIN,TOTAL 0.9 MG/DL (0.3-1.2); BLOOD UREA NITROGEN 15 MG/DL (9-23); CALCIUM LEVEL 8.6 MG/DL (8.3-10.6); CARBON DIOXIDE LEVEL 32 MMOL/L (20-31); CHLORIDE LEVEL 106 MMOL/L (98-107); CREATININE FOR GFR 1.07 MG/DL (0.70-1.30); GLOMERULAR FILTRATION RATE > 60.0 (>49); GLUCOSE, FASTING 98 MG/DL (74-106); POTASSIUM SERUM 3.6 MMOL/L (3.5-5.1); SODIUM LEVEL 142 MMOL/L (136-145); TOTAL PROTEIN 6.4 G/DL (5.7-8.2)
== END ==
LOC: M SFHCRHEU 10:01
PROVIDERS: ATTEND Internal Medicine
DX: M05.79 Rheumatoid arthritis with rheumatoid factor of multiple sites without organ or systems involvement (principal); R97.20 Elevated prostate specific antigen [PSA]

== ENCOUNTER → 2023-03-23 | Outpatient (REF) | payer BC, OTHER ==
[2023-03-23 11:54] LABS: HEMATOCRIT 39.7 % (42.0-52.0); HEMOGLOBIN 13.3 g/dl (13.5-17.5); MEAN CORPUSCULAR HEMOGLOBIN 30.5 pg (27.0-33.0); MEAN CORPUSCULAR HGB CONC 33.5 g/dl (32.0-36.5); MEAN CORPUSCULAR VOLUME 91.1 fl (80.0-96.0); PLATELET COUNT, AUTOMATED 259 10^3/uL (150-450); RED BLOOD COUNT 4.36 10^6/uL (4.30-6.10); WHITE BLOOD COUNT 5.1 10^3/uL (4.0-10.0)
[2023-03-23 11:58] LABS: C REACTIVE PROTEIN QUANTITATIV < 0.40 MG/DL (<1.0)
[2023-03-23 12:00] LABS: ALBUMIN 3.8 G/DL (3.2-5.2); ALKALINE PHOSPHATASE 39 U/L (46-116); ALT/SGPT 31 U/L (7.0-40); AST/SGOT 12 U/L (<34); BILIRUBIN,DIRECT 0.3 MG/DL (<0.4); BILIRUBIN,TOTAL 0.7 MG/DL (0.3-1.2); BLOOD UREA NITROGEN 21 MG/DL (9-23); CALCIUM LEVEL 9.9 MG/DL (8.3-10.6); CARBON DIOXIDE LEVEL 30 MMOL/L (20-31); CHLORIDE LEVEL 104 MMOL/L (98-107); CREATININE FOR GFR 1.01 MG/DL (0.70-1.30); GLOMERULAR FILTRATION RATE > 60.0 (>49); GLUCOSE, FASTING 100 MG/DL (74-106); POTASSIUM SERUM 3.9 MMOL/L (3.5-5.1); SODIUM LEVEL 142 MMOL/L (136-145); TOTAL PROTEIN 6.5 G/DL (5.7-8.2)
[2023-03-23 12:13] LABS: ERYTHROCYTE SEDIMENTATION RATE 6 mm/hr (0-20)
[2023-03-23 12:45] LABS: ATYPICAL LYMPH 2 % (0-5); EOSINOPHILS 3 % (0-3); LYMPHOCYTES 29 % (16-44); MONOCYTES 7 % (0-5); NEUTROPHILS 59 % (28-66); PLATELET ESTIMATE NORMAL (NORMAL)
[2023-03-23 12:46] LABS: ANISOCYTOSIS 1+
== END ==
LOC: M SFHCRHEU 09:58
PROVIDERS: ATTEND Internal Medicine
DX: M05.79 Rheumatoid arthritis with rheumatoid factor of multiple sites without organ or systems involvement (principal)

== ENCOUNTER → 2023-04-22 | Outpatient (REF) | payer BC, OTHER | LOC: M SFHCRHEU 09:06 | PROVIDERS: ATTEND Internal Medicine | DX: M05.79 Rheumatoid arthritis with rheumatoid factor of multiple sites without organ or systems involvement (principal) ==

== ENCOUNTER → 2023-04-26 | Outpatient (REF) | payer BC, OTHER ==
[2023-04-26 17:16] LABS: BASO # 0.1 10^3/uL (0.0-0.2); BASO % 0.9 % (0.0-1.0); EOS # 0.2 10^3/uL (0.0-0.5); EOS % 2.3 % (0.0-3.0); HEMATOCRIT 38.1 % (42.0-52.0); HEMOGLOBIN 12.7 g/dl (13.5-17.5); LYMPH # 2.4 10^3/uL (1.5-5.0); LYMPH % 33.9 % (24.0-44.0); MEAN CORPUSCULAR HEMOGLOBIN 30.5 pg (27.0-33.0); MEAN CORPUSCULAR HGB CONC 33.3 g/dl (32.0-36.5); MEAN CORPUSCULAR VOLUME 91.4 fl (80.0-96.0); MONO # 0.8 10^3/uL (0.0-0.8); MONO % 11.3 % (2.0-8.0); NEUTROPHILS # 3.6 10^3/uL (1.5-8.5); NEUTROPHILS % 51.2 % (36.0-66.0); PLATELET COUNT, AUTOMATED 281 10^3/uL (150-450); RED BLOOD COUNT 4.17 10^6/uL (4.30-6.10); WHITE BLOOD COUNT 7.1 10^3/uL (4.0-10.0)
[2023-04-26 17:32] LABS: ALBUMIN 3.9 G/DL (3.2-5.2); ALKALINE PHOSPHATASE 48 U/L (46-116); ALT/SGPT 32 U/L (7.0-40); AST/SGOT 24 U/L (<34); BILIRUBIN,DIRECT 0.2 MG/DL (<0.4); BILIRUBIN,TOTAL 0.7 MG/DL (0.3-1.2); BLOOD UREA NITROGEN 24 MG/DL (9-23); C REACTIVE PROTEIN QUANTITATIV < 0.40 MG/DL (<1.0); CALCIUM LEVEL 8.5 MG/DL (8.3-10.6); CARBON DIOXIDE LEVEL 29 MMOL/L (20-31); CHLORIDE LEVEL 104 MMOL/L (98-107); GLOMERULAR FILTRATION RATE > 60.0 (>49); GLUCOSE, FASTING 87 MG/DL (74-106); POTASSIUM SERUM 3.7 MMOL/L (3.5-5.1); SODIUM LEVEL 142 MMOL/L (136-145); TOTAL PROTEIN 6.8 G/DL (5.7-8.2)
[2023-04-26 17:42] LABS: ERYTHROCYTE SEDIMENTATION RATE 10 mm/hr (0-20)
[2023-04-27 10:36] LABS: IRON (FE) 90 UG/DL (65-175)
[2023-04-27 10:39] LABS: TOTAL 25(OH) VITAMIN D 30.9 NG/ML (20.0-100.0)
== END ==
LOC: M LAB REF 16:31
PROVIDERS: ATTEND Internal Medicine
DX: M05.79 Rheumatoid arthritis with rheumatoid factor of multiple sites without organ or systems involvement (principal); E55.9 Vitamin D deficiency, unspecified; D50.9 Iron deficiency anemia, unspecified

== ENCOUNTER → 2023-11-23 | Outpatient (CLI) | payer BC | LOC: M RAD 15:10 | PROVIDERS: ATTEND Internal Medicine | DX: R22.41 Localized swelling, mass and lump, right lower limb (principal) ==

== ENCOUNTER → 2023-11-24 | Outpatient (REF) | payer OTHER | LOC: M LAB REF 11:46 | PROVIDERS: ATTEND Internal Medicine | DX: M05.79 Rheumatoid arthritis with rheumatoid factor of multiple sites without organ or systems involvement (principal) ==

== ENCOUNTER → 2024-03-20 | Outpatient (REF) | payer OTHER, BC | LOC: M LAB REF 12:52 | PROVIDERS: ATTEND Internal Medicine | DX: L03.115 Cellulitis of right lower limb (principal) ==

== ENCOUNTER → 2024-04-06 | Outpatient (CLI) | payer BC | LOC: M WHC 11:38 | PROVIDERS: ATTEND Internal Medicine | DX: R42 Dizziness and giddiness (principal) ==

== ENCOUNTER → 2024-05-22 | Outpatient (CLI) | payer BC ==
[~2024-05-22] MED LIST changes: +BUDE180A2; -BUDE180INH
== END ==
LOC: M RAD 13:03
PROVIDERS: ATTEND Internal Medicine
DX: R60.0 Localized edema (principal)

== ENCOUNTER → 2025-01-11 | Outpatient (REF) | payer BC | LOC: M LAB REF 14:43 | PROVIDERS: ATTEND Internal Medicine | DX: M05.79 Rheumatoid arthritis with rheumatoid factor of multiple sites without organ or systems involvement (principal) ==